=== PATIENT | male | born 1945 | race Caucasian/White ===

== ENCOUNTER → 2019-07-05 | Outpatient (CLI) | payer OTHER ==
[2019-07-05 10:46] LABS: MCH 31.9 pg (26.0-34.0); MCHC 33.3 g/dL (28.0-37.0); MCV 95.9 fL (80.0-100.0); RBC 4.69 mil/uL (4.50-6.00); RDW 13.1 % (10.5-14.5); WBC 5.2 thou/uL (4.0-11.0)
[2019-07-05 11:25] LABS: ALBUMIN 3.5 g/dL (3.4-5.0); CALCIUM 8.9 mg/dL (8.5-10.1); CREATININE 1.4 mg/dL (0.7-1.3); POTASSIUM 4.7 mmol/L (3.5-5.1); TOTAL BILIRUBIN 0.5 mg/dL (<0.1-1.0); TOTAL PROTEIN 6.6 g/dL (6.4-8.2)
== END ==
LOC: CAT 10:21 → LABMALL 10:21
PROVIDERS: Internal Medicine Cardiovascular Disease
DX: I48.91 Unspecified atrial fibrillation (principal); I25.10 Atherosclerotic heart disease of native coronary artery without angina pectoris; N28.1 Cyst of kidney, acquired; M47.814 Spondylosis without myelopathy or radiculopathy, thoracic region

== ENCOUNTER 2019-07-14 06:12 | Observation (INO) | payer OTHER ==
[~2019-07-14] VITALS: Ht 177.8 cm; Wt 83.0 kg
[2019-07-14] VITALS (12 sets, daily range): BP systolic 116–137; BP diastolic 53–76
[2019-07-14 07:13] LABS: ABSOLUTE NEUTROPHILS 2.7 thou/uL (1.4-8.2); BASOPHILS 1.2 % (0.0-2.0); EOSINOPHILS 2.3 % (0.0-3.0); HEMATOCRIT 45.9 % (42.0-52.0); HEMOGLOBIN 14.9 gm/dL (14.0-18.0); LYMPHOCYTES 37.7 % (24.0-44.0); MCH 31.3 pg (26.0-34.0); MCHC 32.5 g/dL (28.0-37.0); MCV 96.2 fL (80.0-100.0); MONOCYTES 7.7 % (1.0-8.0); PLATELET COUNT 256 thou/uL (150-400); POLYS 51.1 % (36.0-66.0); RBC 4.78 mil/uL (4.50-6.00); RDW 13.3 % (10.5-14.5); WBC 5.3 thou/uL (4.0-11.0)
[2019-07-14 07:21] LABS: CALCIUM 9.2 mg/dL (8.5-10.1); CREATININE 1.2 mg/dL (0.7-1.3); POTASSIUM 3.9 mmol/L (3.5-5.1)
[2019-07-14 07:28] LABS: ALBUMIN 3.3 g/dL (3.4-5.0); TOTAL BILIRUBIN 0.3 mg/dL (<0.1-1.0); TOTAL PROTEIN 6.8 g/dL (6.4-8.2)
[2019-07-14 07:31] LABS: PROTIME 9.4 Seconds (9.3-11.4)
[2019-07-14] MEDS ORDERED: PACERONE 200 M200 M1 PO (07:41)
[2019-07-14] MEDS ORDERED: NORVASC5 MG PO (07:42)
[2019-07-14] MEDS ORDERED: ASPIR-TRIN325 MG PO (07:43)
[2019-07-14] MEDS ORDERED: PRADAXA150 MG PO (07:44)
[2019-07-14] MEDS ORDERED: LISINOPRIL-HCT1 EAC1 PO (07:46)
[2019-07-14] MEDS ORDERED: TOPROL XL50 MG PO (07:48)
[2019-07-14] MEDS ORDERED: THERA-M1 EAC1 PO (07:51)
--- NOTE | 2019-07-14 13:46 | NUR ---
RECIEVED REPORT ON PT WHILE PT WAS STILL IN EP LAB, DID NOT RECIEVE POST OP REPORT, WHEN FOLLOWED UP FURTHER POST OP RN SAID TO REFER TO PAPERWORK FOR POST OP REPORT. HEMOSTASIS IS STATED @1145 ON PAPERWORK. REPORT GIVEN TO ONCALLEN BELLO.
--- NOTE | 2019-07-14 17:56 | NUR ---
ASSUMED CARE AT 1300, SHIFT ASSESSMENT AND ADMISSION DONE, MEDS GIVEN, VSS. POST CATH, AFIB ABLATION, BOTH RIGHT AND LEFT GROIN SITES. BOTH SIDES ARE CLEAN, DRY, INTACT, SOFT TO TOUCH. RIGHT SIDE HAS SOME BLEEDING ON IT. LEFT SIDE IS CLEAN. DR TAM AWARE, HE CAME IN AT 1515, TOOK THE DRESSING OFF, CUT THE SUTURES AND INDICATED SITE LOOKS GOOD. PT TO BE ON BEDREST UNTIL 1800. REPORT GIVEN TO NURSE FOSS.
--- NOTE | 2019-07-15 04:08 | NUR ---
ASSESSMENT DOCUMENTED.PT BEEN RESTING IN NO ACUTE DISTRESS.S/P CATH /ABLATION,VALERIY GROINS W/O HEMATOMA.UP AD URSZULA.DENIES PAIN OR ANY DISTRESS AT THIS TIME.POC IS TO DISCHARGE THIS AM/
[2019-07-15 04:37] VITALS: BP 124/64
[2019-07-15 07:20] VITALS: BP 142/67
[2019-07-15 09:46] VITALS: BP 142/67
--- NOTE | 2019-07-15 10:05 | NUR ---
ASSESSMENT CHARTED. PT ALERT AND ORIENTED. VSS. DENIED HAVING PAIN OR DISCOMFORT. RIGHT AND LEFT GROIN INCISION C/D/I. NO HEMATOMA NOTED. SEEN BY DR. STRICKLAND. ORDERS GIVEN TO DISCHARGE PT TO HOME. DISCHARGE INSTRUCTIONS GIVEN TO PT. PT VERBERLIZED UNDERSTANDING.
--- NOTE | 2019-07-19 15:56 | P ---
[facility] [place] [address] PROCEDURE REPORT Name: CALE GONZALEZ Room #: 200-I [facility] Jp MDaksha.#: [id number] Admission: 07/14/19 Attend Phys: Luan Singh MD Discharge: 07/15/19 Date of : 45 Report #: [id number] THIS REPORT FOR: //name// CC: ALLIE physician/PCP Luan Singh PREOPERATIVE DIAGNOSES: 1. Atrial fibrillation. 2. Sick sinus syndrome. 3. Heart block, status post pacemaker implantation. PROCEDURES PERFORMED: 1. Atrial fibrillation ablation, CPT code 68876. 2. 3D mapping, CPT code 10240. 3. Arterial line placement, CPT code 32329. 4. Intracardiac echo, CPT code 80440. 5. Focal ablation, CPT code 65929. 6. Preprocedure pacemaker reprogramming, CPT code 27679. 7. Post-procedure pacemaker reprogramming, CPT code 16364. ANESTHESIA: The patient underwent general anesthesia with no anesthesia related complications. Anesthesiologist was not able to obtain arterial access. DESCRIPTION OF PROCEDURE: The patient underwent informed consent. We discussed the details of the procedure including the risks, which include but not limited to bleeding, infection, vascular damage, cardiac perforation, pneumothorax. The patient understood the risks of the procedure and was willing to proceed. The patient was brought to the EP laboratory in fasting and sedated state. His pacemaker was reprogrammed to a DDD mode. Next, I obtained access to the right femoral vein x 3, placing an 8, 9 and 7-Emirati short sheath using the modified Seldinger technique. Next, under fluoroscopy, I placed a decapolar catheter easily in the coronary sinus and an intracardiac ultrasound camera into the right atrium. Using intracardiac ultrasound, I created a detailed 3D geometry of the left atrium with specific emphasis of the left common ostium in the right superior and right inferior pulmonary vein. In the left common ostium, there was a large left upper and left lower branch. This was merged with the patient's cardiac CT scan. Of note, arterial access of the left femoral artery was obtained and a 5-Emirati short sheath was placed for arterial blood pressure monitoring. At baseline, the patient was in AFib with a ventricular rate of 810 milliseconds, QRS duration 180 milliseconds, which is paced and a QT interval of 440 milliseconds. Next, the patient was systemically heparinized and a transseptal was performed using an SL1 sheath and a [place] needle. This was straightforward and I was able to advance the cryo sheath into the left atrium. Via the cryo sheath, I placed a [employer] Su Lasso catheter and created a detailed 3D voltage map of the left atrium. This was then merged with the cardiac CT scan as well. Next, I exchanged for the cryo balloon. I started by [facility] [address] [place] [address] PROCEDURE REPORT Name: CALE GONZALEZ Room #: 200-I [facility] Peck#: [id number] Admission: 07/14/19 Attend Phys: Luan Singh MD Discharge: 07/15/19 Date of : 45 Report #: [id number] isolating the left superior pulmonary branch within the left common ostium. I performed a 4-minute, followed by 3-minute freeze. The vein isolated during the first freeze within 43 seconds. I turned my attention to the left inferior pulmonary vein and performed a 4-minute, followed by 3-minute freeze. The vein isolated during the first freeze within 60 seconds. I then performed phrenic nerve pacing using the decapolar catheter placed at the subclavian position. In the right superior pulmonary vein, I performed a 4-minute, followed by 3-minute freeze. This vein isolated during the first freeze. I then went to the right inferior pulmonary vein and performed a 4-minute freeze. This vein isolated within 30 seconds. I then performed a posterior wall isolation using the cryoablation balloon. I performed 3 freezes anchored from the left superior pulmonary vein, 2 freezes anchored from the right superior pulmonary vein, 2 freezes anchored from the left inferior pulmonary vein and 1 freeze performed by the right inferior pulmonary vein. The patient underwent an initial voltage map which showed that we had essentially isolated all the veins and isolated the posterior wall as well. At this point, the patient underwent a 200 joule cardioversion and I performed a repeat voltage map in sinus rhythm. This showed that there was still some signals in the left superior pulmonary vein that did capture and therefore, I went back with the cryoablation balloon and performed an additional 2 freezes each of 3 minutes duration. I then went back with the Lasso catheter and the left superior vein was now isolated. A repeat voltage map was created and this showed that we had clearly isolated all the veins and had isolated the posterior wall as well. Using intracardiac ultrasound, I verified there was no pericardial effusion. The patient then received systemic protamine and once ACT was within acceptable range, catheters and sheaths were pulled. A [id number] suture was deployed at the right groin region to ensure hemostasis. The pacemaker was reprogrammed back to its nominal settings and found to be functioning normally. CONCLUSIONS: 1. Successful AFib ablation with isolation of the 4 pulmonary veins. 2. Successful posterior wall isolation. 3. Successful pacemaker reprogramming. <ELECTRONICALLY SIGNED> By: Luan Singh MD 07/19/19 1556 1520 0212 Luan Singh MD /nadine
== END 2019-07-15 10:07 | disposition home or self-care (01) ==
LOC: CATH 06:12 → 2N 13:56 → ENTRNSPT 07-15 09:50 → EDTRNSPTSTS 07-15 09:59 → 2N 07-15 10:07 → CMPTRNSPT 07-15 10:54
PROVIDERS: ADMIT Internal Medicine Cardiovascular Disease
DX: I48.0 Paroxysmal atrial fibrillation (principal); I49.5 Sick sinus syndrome; I45.9 Conduction disorder, unspecified; I10 Essential (primary) hypertension; Z79.82 Long term (current) use of aspirin; Z79.899 Other long term (current) drug therapy
CPT/HCPCS: 62110; 62900; 65020; 65040; 65130; 70005